=== PATIENT | female | born 1970 | race Caucasian/White ===

== ENCOUNTER 2021-01-23 17:26 | Emergency (ER) | payer MEDICAID ==
[~2021-01-23] VITALS: Ht 172.7 cm; Wt 78.0 kg
[2021-01-23] MEDS ORDERED: KETOROLAC 60MG/2ML VIAL IM STA (18:00)
[2021-01-23 18:33] LABS: CLARITY URINE CLOUDY (CLEAR); COLOR URINE DARK YELLOW (YELLOW); KETONES URINE NEGATIVE (NEGATIVE); LEUKOCYTE ESTERASE URINE TRACE (NEGATIVE); NITRITE URINE NEGATIVE (NEGATIVE); OCCULT BLOOD URINE 2+ (NEGATIVE); PROTEIN URINE 2+ (NEGATIVE); SPECIFIC GRAVITY URINE 1.022 (1.005-1.030)
[2021-01-23] MEDS ORDERED: AMOX-424 MT (20:01)
[2021-01-23] MEDS ORDERED: IBUP-2029 MT (20:01)
[2021-01-23 20:13] VITALS: BP 135/83
== END 2021-01-23 20:13 | disposition home or self-care (01) ==
LOC: ER 17:26
DX: N12 Tubulo-interstitial nephritis, not specified as acute or chronic (principal); J45.909 Unspecified asthma, uncomplicated; M19.90 Unspecified osteoarthritis, unspecified site
CPT/HCPCS: 74176; 81003; 81025; 96372; 99284; J1885

== ENCOUNTER 2021-07-01 19:24 | Emergency (ER) | payer MEDICAID ==
[~2021-07-01] VITALS: Ht 170.2 cm; Wt 89.0 kg
[~2021-07-01 19:24] MED LIST: AMOX-424 MT; IBUP-2029 MT
[2021-07-01] MEDS ORDERED: IBUPROFEN 800MG TABLET PO ONE (23:30)
[2021-07-01] MEDS ORDERED: AMOX1TAB16 MT (23:45)
[2021-07-01] MEDS ORDERED: BACITRACIN ZINC OINT UDPKT TOP ONE (23:45)
[2021-07-02] VITALS: BP 121/81
== END 2021-07-02 01:11 | disposition home or self-care (01) ==
LOC: ER 19:24
DX: S61.402A Unspecified open wound of left hand, initial encounter (principal); L08.9 Local infection of the skin and subcutaneous tissue, unspecified; J45.909 Unspecified asthma, uncomplicated; M19.90 Unspecified osteoarthritis, unspecified site; X58.XXXA Exposure to other specified factors, initial encounter; Y93.89 Activity, other specified; Y92.018 Other place in single-family (private) house as the place of occurrence of the external cause
CPT/HCPCS: 99283

== ENCOUNTER 2021-12-14 12:53 | Emergency (ER) | payer MEDICAID ==
[~2021-12-14] VITALS: Ht 170.2 cm; Wt 92.0 kg
[~2021-12-14 12:53] MED LIST changes: +AMOX1TAB16 MT
[2021-12-14 14:28] LABS: BASOPHILS % 0.6 % (0.0-2.0); EOSINOPHILS % 2.7 % (0.0-5.0); HEMOGLOBIN. 12.7 g/dL (12.0-16.0); LYMPHOCYTES % 35.9 % (20.0-50.0); MEAN CORPUSCULAR VOLUME 87.1 fL (81.0-99.0); MEAN PLATELET VOLUME 9.6 fl (7.4-10.4); MONOCYTES % 7.6 % (2.0-8.0); NEUTROPHILS % 53.2 % (40.0-76.0); PLATELET 252 x1000/uL (130-400); RED BLOOD CELL COUNT 4.37 mill/uL (4.2-5.4); RED CELL DISTRIBUTION WIDTH 13.4 % (11.6-14.6)
[2021-12-14 14:36] LABS: CHLORIDE 111 mEq/L (98-107)
[2021-12-14 14:38] LABS: HCG SCREEN NEGATIVE
[2021-12-14] MEDS ORDERED: KETOROLAC 60MG/2ML VIAL IM ONE (20:00)
[2021-12-14 20:11] LABS: CLARITY URINE CLEAR (CLEAR); COLOR URINE YELLOW (YELLOW); KETONES URINE NEGATIVE (NEGATIVE); LEUKOCYTE ESTERASE URINE NEGATIVE (NEGATIVE); NITRITE URINE NEGATIVE (NEGATIVE); OCCULT BLOOD URINE 1+ (NEGATIVE); PH URINE 5.5 (4.5-8.0); PROTEIN URINE 1+ (NEGATIVE); SPECIFIC GRAVITY URINE 1.019 (1.005-1.030)
[2021-12-14] MEDS ORDERED: HYDROCODONE/ACETAMINOPHEN 5/325MG TABLET PO ONE (20:30)
[2021-12-14 20:48] VITALS: BP 165/96
[2021-12-14] MEDS ORDERED: LORAZEPAM 0.5MG TABLET PO ONE (21:30)
[2021-12-14] MEDS ORDERED: CEPH500C2 MT (23:33)
[2021-12-14] MEDS ORDERED: IBUP-2028 MT (23:33)
[2021-12-14] MEDS ORDERED: HYDR-4001 MT (23:45)
== END 2021-12-14 23:48 | disposition home or self-care (01) ==
LOC: ER 12:53
DX: M54.50 Low back pain, unspecified (principal); N39.0 Urinary tract infection, site not specified; J45.909 Unspecified asthma, uncomplicated; Z90.710 Acquired absence of both cervix and uterus; Z90.49 Acquired absence of other specified parts of digestive tract; Z79.899 Other long term (current) drug therapy
CPT/HCPCS: 36415; 72148; 74176; 80053; 81003; 83690; 84703; 85025; 96372; 99284; J1885